=== PATIENT | male | born 1970 | race Caucasian/White ===

== ENCOUNTER 2022-05-07 23:14 | Emergency (ER) | payer OTHER ==
[2022-05-07 23:24] VITALS: BP 147/93; PULSE 82; RESP 16; TEMP 98.1; BMI 26.1
[2022-05-08 01:13] LABS: CALCIUM 8.8 mg/dL (8.5-10.1)
[2022-05-08 01:14] LABS: ALBUMIN 4.1 g/dl (3.4-5.0); BLOOD UREA NITROGEN 16.4 mg/dL (7-18)
[2022-05-08 01:17] LABS: CREATININE 0.8 mg/dL (0.55-1.3)
[2022-05-08 01:19] LABS: BILIRUBIN,TOTAL 0.6 mg/dL (0.2-1); TOT PROT 7.2 g/dl (6.4-8.2)
[2022-05-08 01:25] LABS: HEMATOCRIT 43.5 % (35.4-49); HEMOGLOBIN 14.8 GM/dL (11.7-16.9); LYMPH % 37.1 % (8-40); MCH 31.4 pg (25.7-33.7); MEAN CELL VOLUME 92.5 fl (80-96); MONO % 8.2 % (3.8-10.2); NEUT % 46.7 % (42.8-82.8); PLATELET COUNT 228 10^3/uL (134-434); RBC 4.71 M/mm3 (4.00-5.60); WHITE BLOOD COUNT 6.7 K/mm3 (4.0-10.0)
== END 2022-05-08 02:17 | disposition home or self-care (01) ==
LOC: JER 23:14
DX: I10 Essential (primary) hypertension (principal)
CPT/HCPCS: 36415; 80053; 84443; 85025; 93005; 93010; 99284-25